=== PATIENT | female | born 1965 | race Caucasian/White ===

== ENCOUNTER 2019-08-02 17:36 | Emergency (ER) | payer OTHER, SELFPAY ==
[2019-08-02 17:45] VITALS: BP 142/70; PULSE 86; RESP 24; TEMP 36.5; O2SAT 100; BMI 25.0
[2019-08-02] MEDS: ONDANSETRON 4 MG/2 ML INJ IV ×2 (17:55→19:14)
[2019-08-02] MEDS: SODIUM CHLORIDE 0.9% 1,000 ML 1000 ML IV ×2 (17:56→19:14)
[2019-08-02 18:06] LABS: Add Manual Diff / Slide Review NO; Basophils Absolute Auto 100 /uL (0-100); Eosinophils Absolute Auto 100 /uL (0-450); Eosinophils Percent Auto 1.4 % (2-4); Hematocrit 44.9 % (36-46); Hemoglobin 15.5 g/dL (12.0-16.0); Lymphocytes Absolute Auto 1900 /uL (1100-4500); Lymphocytes Percent Auto 31.3 % (25-40); Mean Corpuscular HGB Conc 34.6 % (30-36); Mean Corpuscular Volume 89.6 fL (80-100); Monocytes Absolute Auto 500 /uL (0-900); Monocytes Percent Auto 7.8 % (3-14); Neutrophils Absolute Auto 3500 /uL (1500-7000); Neutrophils Percent Auto 58.5 % (50-75); Platelet Count 249 X10^3/uL (150-400); White Blood Cell Count 5.9 X10^3/uL (4.5-11.0)
[2019-08-02 18:15] LABS: Alanine Aminotransferase 22 IU/L (<35); Albumin 5.2 g/dL (3.5-5.0); Albumin Globulin Ratio 1.7 (1.0-2.8); Alkaline Phosphatase 44 U/L (38-126); Aspartate Aminotransferase 28 IU/L (14-36); Blood Urea Nitrogen 8 mg/dL (7-17); Carbon Dioxide 25 mmol/L (22-32); Chloride 104 mmol/L (98-107); Estimated Glomerular Filt Rate > 60.0 mL/min (>60); Globulin 3.1 g/dL (1.7-4.1); Glucose 145 mg/dL (70-100); HEMOLYSIS < 15 (0-50); Potassium 3.5 mmol/L (3.4-5.1); Sodium 142 mmol/L (137-145); Total Protein 8.3 g/dL (6.3-8.2)
[2019-08-02 18:16] LABS: Amylase 90 U/L (30-110); Lipase 152 U/L (23-300)
[2019-08-02 18:22] LABS: Influenza A and B by PCR Rapid Negative (Negative)
--- NOTE | 2019-08-02 18:24 | DI.RAD.S_ITS ---
PROCEDURE: XR ACUTE ABDOMEN SERIES INDICATIONS: abd pain,vomiting TECHNIQUE: One view chest and two views of the abdomen were acquired. COMPARISON: None. FINDINGS: Surgical changes and devices: None. Chest: Lungs are clear. Heart size is normal. No pleural effusions. No pneumoperitoneum. Abdomen: Bowel gas pattern is normal. Hvwb-gi-uwdzgitm stool. No suspicious calcifications. Visualized solid organ contours appear normal. Bones: No suspicious bony lesions. IMPRESSION: Ubqy-ia-udqsadtj stool. No obstruction. Dictated by: Carmen Spears M.D. on 08/02/2019 at 18:53 Approved by: Carmen Spears M.D. on 08/02/2019 at 18:54
[2019-08-02 18:52] VITALS: BP 143/76; PULSE 55; O2SAT 96
[2019-08-02] MEDS: KETOROLAC 60 MG/2 ML VIAL 30 MG IV (19:13)
--- NOTE | 2019-08-02 19:59 | ED.NAVMDI ---
HPI - Nausea/Vomiting/Diarrhea <ALEX Ozuna - Last Filed: 08/02/19 20:13> General Chief complaint: Nausea/Vomiting/Diarrhea Stated complaint: not feeling well 3x days Time Seen by Provider: 08/02/19 17:43 Source: patient Mode of arrival: Ambulatory Limitations: no limitations History of Present Illness HPI Narrative: The patient is a 53-year-old female former smoker with history of depression who presents with a chief complaint of not feeling well for the past 3 days. She states that she has general aches and pains a few days ago, progressive vomiting last night. She states she vomited several times last night has had trouble keeping fluids down today. She denies any fevers, abdominal pain, chest pain shortness of breath cough congestion etc. She has not taken anything at home to feel better. She denies any sore throat or ear pain. She feels overall like she has caught a virus. She is curious to know whether are not she has the flu. Related Data Home Medications Medication Instructions Recorded Confirmed bupropion HCl [Wellbutrin SR] 150 mg PO QDAY #0 10/04/11 escitalopram oxalate [Lexapro] 10 mg PO QDAY #0 10/04/11 POLYETHYLENE GLYCOL 3350 1 cap PO Q DAY #0 10/08/11 diazepam 5 mg PO #0 10/08/11 Previous Rx's Medication Instructions Recorded ondansetron 4 mg PO Q6H PRN #20 tab 08/02/19 Allergies Allergy/AdvReac Type Severity Reaction Status Date / Time Sulfa (Sulfonamide Allergy Intermediate HIVES Verified 08/02/19 17:52 Antibiotics) Review of Systems <ALEX Ozuna - Last Filed: 08/02/19 20:13> Review of Systems Narrative: GENERAL: See HPI HEENT: Denies sinus pain, ear pain, sore throat, difficulty swallowing, dizziness. RESPIRATORY: Denies dyspnea, cough, wheezing, hemoptysis, sputum. CARDIOVASCULAR: Denies chest pain, palpitations, orthopnea, edema, GASTROINTESTINAL: See HPI : Denies dysuria, frequency, incontinence, hematuria, urinary retention. MUSCULOSKELETAL: denies weakness, joint pain, or bony pain SKIN: Denies rash, skin lesions, or other NEUROLOGIC: Denies weakness, headache, numbness, change in speech, confusion, seizures, incoordination. PSYCHIATRIC: No concerning psychosocial issues. 12 point review of systems is negative except for those stated above Patient History <Soraya Rudd ALEX - Last Filed: 08/02/19 20:13> Social History Smoking Status: Former smoker alcohol intake frequency: 0-2 drinks per day Substance Use Type: does not use Exam <Soraya Rudd ALEX - Last Filed: 08/02/19 20:13> Narrative Exam Narrative: GENERAL: This is a well-nourished, well-developed patient, in no acute distress HEAD: Atraumatic. Normocephalic. No temporal or scalp tenderness. EYES: Pupils equal round and reactive. Extraocular motions intact. No scleral icterus. No injection or drainage. ENT: Nose without bleeding, purulent drainage or septal hematoma. Throat without erythema, tonsillar hypertrophy or exudate. Uvula midline. Airway patent. NECK: Trachea midline. No JVD or lymphadenopathy. Supple, nontender, no meningeal signs. CARDIOVASCULAR: Regular rate and rhythm without murmurs, gallops, or rubs. RESPIRATORY: Clear to auscultation. Breath sounds equal bilaterally. No wheezes, rales, or rhonchi. No cough. No increased respiratory effort. No accessory muscle use. GASTROINTESTINAL: Abdomen soft, non-tender, nondistended. No hepato-splenomegaly, or palpable masses. No guarding. Nontender to palpation all quadrants, soft to palpation all quadrants. Active bowel sounds all 4 quadrants. EXTREMITIES: No clubbing, cyanosis, or edema. No joint tenderness, effusion, or edema noted. BACK: Nontender without deformity or crepitance. No flank tenderness. NEURO: AOx3. SKIN: No rash or erythema. Initial Vital Signs Initial Vital Signs: Vital Signs Temperature 97.7 F 08/02/19 17:45 Pulse Rate 86 08/02/19 17:45 Respiratory Rate 24 08/02/19 17:45 Blood Pressure 142/70 H 08/02/19 17:45 Pulse Oximetry 100 08/02/19 17:45 <Mikhail Rader DO - Last Filed: 08/02/19 21:09> Initial Vital Signs Initial Vital Signs: Vital Signs Temperature 97.7 F 08/02/19 17:45 Pulse Rate 86 08/02/19 17:45 Respiratory Rate 24 08/02/19 17:45 Blood Pressure 142/70 H 08/02/19 17:45 Pulse Oximetry 100 08/02/19 17:45 Course <CHEPE Ozuna- - Last Filed: 08/02/19 20:13> Orders Ordered: ED Orders 08/02/19 17:55 Amylase Stat Complete Blood Count AUTO DIFF Stat Comprehensive Metabolic Panel Stat Influenza A and B by PCR Rapid Stat Lipase Stat 08/02/19 18:24 XR acute abdomen series Stat Discontinued Medications Sodium Chloride (Normal Saline 0.9%) 1,000 mls @ 1,000 mls/hr IV BOLUS ONE Stop: 08/02/19 18:48 Last Infusion: 08/02/19 18:52 Dose: 0 mls/hr Documented by: JOSE ENRIQUE Admin: 08/02/19 17:56 Dose: 1,000 mls/hr Documented by: SURENDRA Sodium Chloride (Normal Saline 0.9%) 1,000 mls @ 1,000 mls/hr IV BOLUS ONE Stop: 08/02/19 19:45 Last Infusion: 08/02/19 20:11 Dose: 0 mls/hr Documented by: JOSE ENRIQUE Admin: 08/02/19 19:14 Dose: 1,000 mls/hr Documented by: JOSE ENRIQUE Ketorolac Tromethamine (Toradol) 30 mg IV NOW ONE Stop: 08/02/19 19:03 Last Admin: 08/02/19 19:13 Dose: 30 mg Documented by: JOSE ENRIQUE Ketorolac Tromethamine (Toradol) 30 mg IV NOW ONE Stop: 08/02/19 19:02 Last Admin: 08/02/19 19:36 Dose: Not Given Documented by: JOSE ENRIQUE Ondansetron HCl (Zofran) 4 mg IV NOW ONE Stop: 08/02/19 17:50 Last Admin: 08/02/19 17:55 Dose: 4 mg Documented by: SURENDRA Ondansetron HCl (Zofran) 4 mg IV NOW ONE Stop: 08/02/19 19:03 Last Admin: 08/02/19 19:14 Dose: 4 mg Documented by: JOSE ENRIQUE Ondansetron HCl (Zofran) 4 mg IV NOW ONE Stop: 08/02/19 19:02 Last Admin: 08/02/19 19:37 Dose: Not Given Documented by: JOSE ENRIQUE Ondansetron HCl (Zofran Odt Prepack) 1 bottle MISC SEEINSTR ONE Stop: 08/02/19 20:00 Last Admin: 08/02/19 20:06 Dose: 1 bottle Documented by: SURENDRA Vital Signs Vital signs: Vital Signs - 8 hr 08/02/19 17:45 08/02/19 18:52 08/02/19 20:11 Temperature 97.7 F Pulse Rate 86 55 L 72 Respiratory Rate 24 16 Blood Pressure 142/70 H 116/70 Blood Pressure [Left Arm] 143/76 H Pulse Oximetry 100 96 97 <Mikhail Rader DO - Last Filed: 08/02/19 21:09> Orders Ordered: ED Orders 08/02/19 17:55 Amylase Stat Complete Blood Count AUTO DIFF Stat Comprehensive Metabolic Panel Stat Influenza A and B by PCR Rapid Stat Lipase Stat 08/02/19 18:24 XR acute abdomen series Stat Discontinued Medications Sodium Chloride (Normal Saline 0.9%) 1,000 mls @ 1,000 mls/hr IV BOLUS ONE Stop: 08/02/19 18:48 Last Infusion: 08/02/19 18:52 Dose: 0 mls/hr Documented by: JOSE ENRIQUE Admin: 08/02/19 17:56 Dose: 1,000 mls/hr Documented by: SURENDRA Sodium Chloride (Normal Saline 0.9%) 1,000 mls @ 1,000 mls/hr IV BOLUS ONE Stop: 08/02/19 19:45 Last Infusion: 08/02/19 20:11 Dose: 0 mls/hr Documented by: JOSE ENRIQUE Admin: 08/02/19 19:14 Dose: 1,000 mls/hr Documented by: JOSE ENRIQUE Ketorolac Tromethamine (Toradol) 30 mg IV NOW ONE Stop: 08/02/19 19:03 Last Admin: 08/02/19 19:13 Dose: 30 mg Documented by: JOSE ENRIQUE Ketorolac Tromethamine (Toradol) 30 mg IV NOW ONE Stop: 08/02/19 19:02 Last Admin: 08/02/19 19:36 Dose: Not Given Documented by: JOSE ENRIQUE Ondansetron HCl (Zofran) 4 mg IV NOW ONE Stop: 08/02/19 17:50 Last Admin: 08/02/19 17:55 Dose: 4 mg Documented by: SURENDRA Ondansetron HCl (Zofran) 4 mg IV NOW ONE Stop: 08/02/19 19:03 Last Admin: 08/02/19 19:14 Dose: 4 mg Documented by: JOSE ENRIQUE Ondansetron HCl (Zofran) 4 mg IV NOW ONE Stop: 08/02/19 19:02 Last Admin: 08/02/19 19:37 Dose: Not Given Documented by: JOSE ENRIQUE Ondansetron HCl (Zofran Odt Prepack) 1 bottle MISC SEEINSTR ONE Stop: 08/02/19 20:00 Last Admin: 08/02/19 20:06 Dose: 1 bottle Documented by: SURENDRA Vital Signs Vital signs: Vital Signs - 8 hr 08/02/19 17:45 08/02/19 18:52 08/02/19 20:11 Temperature 97.7 F Pulse Rate 86 55 L 72 Respiratory Rate 24 16 Blood Pressure 142/70 H 116/70 Blood Pressure [Left Arm] 143/76 H Pulse Oximetry 100 96 97 MDM - Nausea/Vomiting/Diarrhea <CHEPE Ozuna- - Last Filed: 08/02/19 20:13> Lab Data Result diagrams: 08/02/19 17:55 08/02/19 17:55 Labs: Lab Results 08/02/19 08/02/19 08/02/19 Range/Units 17:55 17:55 17:55 WBC 5.9 (4.5-11.0) X10^3/uL RBC 5.00 (4.0-5.2) X10^6/uL Hgb 15.5 (12.0-16.0) g/dL Hct 44.9 (36-46) % MCV 89.6 (80-100) fL MCH 31.0 (26-34) PG MCHC 34.6 (30-36) % RDW 13.0 (11.6-14.8) % Plt Count 249 (150-400) X10^3/uL Neut % (Auto) 58.5 (50-75) % Lymph % (Auto) 31.3 (25-40) % [place] % (Auto) 7.8 (3-14) % Eos % (Auto) 1.4 L (2-4) % Baso % (Auto) 1.0 (0-2) % Neut # (Auto) 3500 (6345-2651) /uL Lymph # (Auto) 1900 (6470-8947) /uL [place] # (Auto) 500 (0-900) /uL Eos # (Auto) 100 (0-450) /uL Baso # (Auto) 100 (0-100) /uL Sodium (137-145) mmol/L Potassium (3.4-5.1) mmol/L Chloride (98-107) mmol/L Carbon Dioxide (22-32) mmol/L BUN (7-17) mg/dL Creatinine (0.52-1.04) mg/dL Estimated GFR (>60) mL/min BUN/Creatinine Ratio (6-22) Glucose (70-100) mg/dL Calcium (8.4-10.2) mg/dL Total Bilirubin (0.2-1.3) mg/dL AST (14-36) IU/L ALT (<35) IU/L Alkaline Phosphatase (38-126) U/L Total Protein (6.3-8.2) g/dL Albumin (3.5-5.0) g/dL Globulin (1.7-4.1) g/dL Albumin/Globulin Ratio (1.0-2.8) Amylase 90 (30-110) U/L Lipase 152 (23-300) U/L Influenza A & B (PCR) Negative (Negative) 08/02/19 Range/Units 17:55 WBC (4.5-11.0) X10^3/uL RBC (4.0-5.2) X10^6/uL Hgb (12.0-16.0) g/dL Hct (36-46) % MCV (80-100) fL MCH (26-34) PG MCHC (30-36) % RDW (11.6-14.8) % Plt Count (150-400) X10^3/uL Neut % (Auto) (50-75) % Lymph % (Auto) (25-40) % [place] % (Auto) (3-14) % Eos % (Auto) (2-4) % Baso % (Auto) (0-2) % Neut # (Auto) (1159-4952) /uL Lymph # (Auto) (3441-0732) /uL [place] # (Auto) (0-900) /uL Eos # (Auto) (0-450) /uL Baso # (Auto) (0-100) /uL Sodium 142 (137-145) mmol/L Potassium 3.5 (3.4-5.1) mmol/L Chloride 104 (98-107) mmol/L Carbon Dioxide 25 (22-32) mmol/L BUN 8 (7-17) mg/dL Creatinine 0.80 (0.52-1.04) mg/dL Estimated GFR > 60.0 (>60) mL/min BUN/Creatinine Ratio 10.0 (6-22) Glucose 145 H (70-100) mg/dL Calcium 10.0 (8.4-10.2) mg/dL Total Bilirubin 1.0 (0.2-1.3) mg/dL AST 28 (14-36) IU/L ALT 22 (<35) IU/L Alkaline Phosphatase 44 (38-126) U/L Total Protein 8.3 H (6.3-8.2) g/dL Albumin 5.2 H (3.5-5.0) g/dL Globulin 3.1 (1.7-4.1) g/dL Albumin/Globulin Ratio 1.7 (1.0-2.8) Amylase (30-110) U/L Lipase (23-300) U/L Influenza A & B (PCR) (Negative) Urine Dip Bedside Urine Glucose Negative Bedside Urine Bilirubin - Negative Bedside Urine Ketone - Negative Urine Specific [place] 1.005 Bedside Urine Occult Blood - Negative Bedside Urine pH 8.5 Bedside Urine Protein - Negative Bedside Urine Urobilinogen - Negative Bedside Urine Nitrite - Negative Bedside Urine Leukocytes - Negative Esterase Imaging Data Abdominal x-ray: Radiologist's impression: Whit Dee E 53 F [address] [address] XRay Report Signed Patient: Whit Dee EMR#: [id number] : 1965Acct:[id number] Age/Sex: 53 / FDate of Service: 08/02/19 Loc: ED Accession Number: [id number] Procedure: XR acute abdomen series Ordering Provider: Soraya Rudd- PROCEDURE: XR ACUTE ABDOMEN SERIES INDICATIONS: abd pain,vomiting TECHNIQUE: One view chest and two views of the abdomen were acquired. COMPARISON: None. FINDINGS: Surgical changes and devices: None. Chest: Lungs are clear. Heart size is normal. No pleural effusions. No pneumoperitoneum. Abdomen: Bowel gas pattern is normal. Jfzt-kq-wmkfjfms stool. No suspicious calcifications. Visualized solid organ contours appear normal. Bones: No suspicious bony lesions. IMPRESSION: Omhy-xb-uxywdcvd stool. No obstruction. Dictated by: Carmen Spears M.D. on 08/02/2019 at 18:53 Approved by: Carmen Spears M.D. on 08/02/2019 at 18:54 [facility] Narrative Medical decision making narrative: The patient is a 53-year-old female who presents with muscle aches and chills, sweats and nausea vomiting for the past several days. She is given 2 L of IV fluid, Zofran and felt much improved. She is able to tolerate a p.o. trial. She does not have any abdominal pain to palpation, no complaints of abdominal pain. She has any chest pain, and has clean urine. Her lab work is grossly normal. I discussed at length the importance of follow-up with primary care provider, come back to the emergency department for any acute concerns such as chest pain, concern of heart attack or stroke. Patient has no questions or concerns upon discharge and states understanding of return precautions as well as follow-up care. She was given Zofran and a prescription of Zofran. Encouraged easy diet. <Mikhail Rader, DO - Last Filed: 08/02/19 21:09> Lab Data Labs: Lab Results 08/02/19 08/02/19 08/02/19 Range/Units 17:55 17:55 17:55 WBC 5.9 (4.5-11.0) X10^3/uL RBC 5.00 (4.0-5.2) X10^6/uL Hgb 15.5 (12.0-16.0) g/dL Hct 44.9 (36-46) % MCV 89.6 (80-100) fL MCH 31.0 (26-34) PG MCHC 34.6 (30-36) % RDW 13.0 (11.6-14.8) % Plt Count 249 (150-400) X10^3/uL Neut % (Auto) 58.5 (50-75) % Lymph % (Auto) 31.3 (25-40) % [place] % (Auto) 7.8 (3-14) % Eos % (Auto) 1.4 L (2-4) % Baso % (Auto) 1.0 (0-2) % Neut # (Auto) 3500 (9882-7748) /uL Lymph # (Auto) 1900 (3023-3640) /uL [place] # (Auto) 500 (0-900) /uL Eos # (Auto) 100 (0-450) /uL Baso # (Auto) 100 (0-100) /uL Sodium (137-145) mmol/L Potassium (3.4-5.1) mmol/L Chloride (98-107) mmol/L Carbon Dioxide (22-32) mmol/L BUN (7-17) mg/dL Creatinine (0.52-1.04) mg/dL Estimated GFR (>60) mL/min BUN/Creatinine Ratio (6-22) Glucose (70-100) mg/dL Calcium (8.4-10.2) mg/dL Total Bilirubin (0.2-1.3) mg/dL AST (14-36) IU/L ALT (<35) IU/L Alkaline Phosphatase (38-126) U/L Total Protein (6.3-8.2) g/dL Albumin (3.5-5.0) g/dL Globulin (1.7-4.1) g/dL Albumin/Globulin Ratio (1.0-2.8) Amylase 90 (30-110) U/L Lipase 152 (23-300) U/L Influenza A & B (PCR) Negative (Negative) 08/02/19 Range/Units 17:55 WBC (4.5-11.0) X10^3/uL RBC (4.0-5.2) X10^6/uL Hgb (12.0-16.0) g/dL Hct (36-46) % MCV (80-100) fL MCH (26-34) PG MCHC (30-36) % RDW (11.6-14.8) % Plt Count (150-400) X10^3/uL Neut % (Auto) (50-75) % Lymph % (Auto) (25-40) % [place] % (Auto) (3-14) % Eos % (Auto) (2-4) % Baso % (Auto) (0-2) % Neut # (Auto) (9958-2571) /uL Lymph # (Auto) (0857-9773) /uL [place] # (Auto) (0-900) /uL Eos # (Auto) (0-450) /uL Baso # (Auto) (0-100) /uL Sodium 142 (137-145) mmol/L Potassium 3.5 (3.4-5.1) mmol/L Chloride 104 (98-107) mmol/L Carbon Dioxide 25 (22-32) mmol/L BUN 8 (7-17) mg/dL Creatinine 0.80 (0.52-1.04) mg/dL Estimated GFR > 60.0 (>60) mL/min BUN/Creatinine Ratio 10.0 (6-22) Glucose 145 H (70-100) mg/dL Calcium 10.0 (8.4-10.2) mg/dL Total Bilirubin 1.0 (0.2-1.3) mg/dL AST 28 (14-36) IU/L ALT 22 (<35) IU/L Alkaline Phosphatase 44 (38-126) U/L Total Protein 8.3 H (6.3-8.2) g/dL Albumin 5.2 H (3.5-5.0) g/dL Globulin 3.1 (1.7-4.1) g/dL Albumin/Globulin Ratio 1.7 (1.0-2.8) Amylase (30-110) U/L Lipase (23-300) U/L Influenza A & B (PCR) (Negative) Urine Dip Bedside Urine Glucose Negative Bedside Urine Bilirubin - Negative Bedside Urine Ketone - Negative Urine Specific [place] 1.005 Bedside Urine Occult Blood - Negative Bedside Urine pH 8.5 Bedside Urine Protein - Negative Bedside Urine Urobilinogen - Negative Bedside Urine Nitrite - Negative Bedside Urine Leukocytes - Negative Esterase Discharge Plan Departure Patient Disposition: Home Clinical Impression: Nausea & vomiting Qualifiers: Vomiting type: unspecified Vomiting Intractability: non-intractable Qualified Code(s): R11.2 - Nausea with vomiting, unspecified Discharge Date/Time: 08/02/19 20:12 Instructions: DI for Nausea -- Adult, DI for Vomiting -- Adult Activity Restrictions/Additional Instructions: Today your lab work and imaging is very reassuring. You felt well after fluids and Zofran for nausea. I have given you a take-home pack of nausea medication and given you a prescription to fill tomorrow. Please come back to the emergency department for any acute concerns such as fevers abdominal pain, inability keep Down fluids. I suggest a mild diet for the next few days. Please follow up with primary care provider. Prescriptions: New ondansetron 4 mg tablet,disintegrating 4 mg PO Q6H PRN (Reason: nausea and vomiting) Qty: 20 RF: 0 No Action bupropion HCl [Wellbutrin SR] 150 MG tablet extended release 12 hr 150 mg PO QDAY Qty: 0 RF: 0 escitalopram oxalate [Lexapro] 10 MG tablet 10 mg PO QDAY Qty: 0 RF: 0 diazepam 5 MG tablet 5 mg PO Qty: 0 RF: 0 POLYETHYLENE GLYCOL 3350 1 cap PO Q DAY Qty: 0 RF: 0 Referrals: Camila Alexander MD [Primary Care Provider] - Stand Alone Forms: Work Release Note <Mikhail Rader, DO - Last Filed: 08/02/19 21:09> Sign Out Provider Sign Out Attestation: Dr Rader Co-Sign Statement: I was available for consultation during this patient's emergency department visit. This chart is signed by myself for administrative purposes only. I did not have direct contact with this patient during this visit. They were seen independently by the APC.
[2019-08-02] MEDS: ONDANSETRON 4 MG ODT PREPACK 1 BOTTLE MISC (20:06)
[2019-08-02 20:11] VITALS: BP 116/70; PULSE 72; RESP 16; O2SAT 97
== END 2019-08-02 20:12 | disposition home or self-care (01) ==
PROVIDERS: Emergency Provider Nurse Practitioner Family; PCP Family Medicine
DX: R11.2 Nausea with vomiting, unspecified (principal); R10.9 Unspecified abdominal pain
CPT/HCPCS: 36415; 74022; 80053; 81003; 82150; 83690; 85025; 87502; 96361; 96374; 96375; 96376; 99283; 99284; J1885; J2405

== ENCOUNTER → 2019-09-24 16:52 | Outpatient (CLI) | payer OTHER, SELFPAY ==
--- NOTE | 2019-09-24 16:53 | DI.MG.S_ITS ---
BILATERAL DIGITAL SCREENING MAMMOGRAM 3D/2D WITH CAD: 09/24/2019 CLINICAL: Routine screening. Family history of breast cancer. Comparison is made to exams dated: 07/24/2016 mammogram, 07/28/2013 mammogram, and 05/27/2009 mammogram - [facility]. The tissue of both breasts is heterogeneously dense. This may lower the sensitivity of mammography. Current study was also evaluated with a Computer Aided Detection (CAD) system. No significant masses, calcifications, or other findings are seen in either breast. There has been no significant interval change. IMPRESSION: NEGATIVE There is no mammographic evidence of malignancy. A 1 year screening mammogram is recommended. This exam was interpreted at Station ID: [id number]. NOTE: For mammograms, a report in lay terms will be sent to the patient. Approximately 15% of breast malignancies will not be visualized mammographically. In the management of a palpable breast mass, a negative mammogram must not discourage biopsy of a clinically suspicious lesion. Electronically Signed By: Sachin conn/ridge:09/25/2019 15:03:48 letter sent: Normal Exam ACR BI-RADS Category 1: Negative [id number]
== END ==
PROVIDERS: PCP Family Medicine; Visit Provider Family Medicine
DX: Z12.31 Encounter for screening mammogram for malignant neoplasm of breast (principal); Z80.3 Family history of malignant neoplasm of breast
CPT/HCPCS: 77063; 77067

== ENCOUNTER 2022-03-01 15:13 | Emergency (ER) | payer OTHER, SELFPAY ==
[2022-03-01] VITALS (7 sets, daily range): BP systolic 126–135; BP diastolic 71–73; PULSE 59–67; RESP 18; TEMP 36.6; O2SAT 97–100
[2022-03-01 16:04] LABS: Add Manual Diff / Slide Review NO; Basophils Absolute Auto 0 /uL (0-100); Basophils Percent Auto 0.7 % (0-2); Eosinophils Absolute Auto 100 /uL (0-450); Eosinophils Percent Auto 1.5 % (2-4); Hematocrit 39.9 % (36-46); Hemoglobin 13.8 g/dL (12.0-16.0); Lymphocytes Absolute Auto 1400 /uL (1100-4500); Lymphocytes Percent Auto 22.9 % (25-40); Mean Corpuscular HGB Conc 34.6 % (30-36); Mean Corpuscular Hemoglobin 30.5 PG (26-34); Mean Corpuscular Volume 88.1 fL (80-100); Monocytes Absolute Auto 500 /uL (0-900); Neutrophils Absolute Auto 4100 /uL (1500-7000); Neutrophils Percent Auto 66.9 % (50-75); Platelet Count 217 X10^3/uL (150-400); Red Blood Cell Count 4.53 X10^6/uL (4.0-5.2); Red Cell Distribution Width 13.7 % (11.6-14.8); White Blood Cell Count 6.2 X10^3/uL (4.5-11.0)
--- NOTE | 2022-03-01 16:13 | ED.GENADULT ---
HPI - General Adult General Chief complaint: Abdominal Pain Stated complaint: Stabbing Pain on Rt Side Abd Time Seen by Provider: 03/01/22 15:42 Source: patient Mode of arrival: Ambulatory Limitations: no limitations History of Present Illness HPI narrative: Patient is a 56-year-old female who is here for evaluation of upper abdominal discomfort. She states that it started about mid morning today. It actually got worse but is now somewhat better. It still feels somewhat sore to her. Not worse with eating. Not worse with urinating. She has not had a bowel movement since the onset of the symptoms. No nausea vomiting. Has had a hysterectomy and left-sided ovary removal but no other abdominal surgeries. Has never had any issues with her gallbladder in the past. No rashes. She did try some Tums earlier today but that did not seem to improve any of her symptoms. Related Data Home Medications Medication Instructions Recorded Confirmed bupropion HCl 150 mg tablet,12 hr 150 mg PO QDAY ##0 10/04/11 sustained-release (Wellbutrin SR) escitalopram oxalate 10 mg tablet 10 mg PO QDAY ##0 10/04/11 03/01/22 (Lexapro) POLYETHYLENE GLYCOL 3350 1 cap PO Q DAY ##0 10/08/11 03/01/22 diazepam 5 mg tablet 5 mg PO ##0 10/08/11 levothyroxine 100 mcg tablet tab 03/01/22 (Synthroid) Previous Rx's Medication Instructions Recorded ondansetron 4 mg disintegrating 4 mg PO Q6H PRN nausea and 08/02/19 tablet vomiting #20 tabs Allergies Allergy/AdvReac Type Severity Reaction Status Date / Time Sulfa (Sulfonamide Allergy Intermediate HIVES Verified 03/01/22 15:23 Antibiotics) Review of Systems Constitutional Constitutional: Denies fever(s) Cardiovascular Cardiovascular: Reports system reviewed and no additional complaints, except as documented Respiratory Respiratory: Reports system reviewed and no additional complaints, except as documented Gastrointestinal Gastrointestinal: Reports as per HPI and Reports system reviewed and no additional complaints, except as documented Genitourinary Genitourinary: Reports system reviewed and no additional complaints, except as documented and Reports as per HPI Musculoskeletal Musculoskeletal: Reports system reviewed and no additional complaints, except as documented and Reports as per HPI Integumentary/Breasts Skin/Breast: Reports system reviewed and no additional complaints, except as documented and Reports as per HPI Hematologic/Lymphatic On Anticoagulants: No Patient History Medical History Hypothyroid Social History Smoking Status: Former smoker Smoking Status: Former smoker alcohol intake frequency: 0-2 drinks per day Substance Use Type: does not use Exam Initial Vital Signs Initial Vital Signs: Vital Signs Temperature 97.9 F 03/01/22 15:18 Pulse Rate 67 03/01/22 15:18 Respiratory Rate 18 03/01/22 15:18 Blood Pressure 133/71 03/01/22 15:18 Pulse Oximetry 100 03/01/22 15:18 Oxygen Delivery Method 03/01/22 15:18 Const General: cooperative, comfortable and well developed HENMT Head: normal to inspection and normocephalic Resp Effort & Inspection: normal respiratory effort Auscultation: clear to auscultation bilaterally Cardio Rate: regular rate Rhythm: regular rhythm GI Inspection: normal to inspection Palpation: soft, No guarding and tender (Right upper quadrant) Skin General: no rashes or lesions noted Neuro General: patient alert, patient awake and moves all extremities Extrem General: normal to inspection and capillary refill normal Psych Appearance: grossly normal and well kempt Course Orders Ordered: ED Orders 03/01/22 15:53 Complete Blood Count AUTO DIFF Stat Comprehensive Metabolic Panel Stat Lipase Stat 03/01/22 16:15 US abdomen limited Stat Vital Signs Vital signs: Vital Signs - 8 hr 03/01/22 15:18 03/01/22 15:56 03/01/22 15:56 Temperature 97.9 F Pulse Rate 67 62 Respiratory Rate 18 Blood Pressure 133/71 135/72 Pulse Oximetry 100 99 Oxygen Delivery Method Room Air 03/01/22 16:00 03/01/22 16:34 03/01/22 16:34 Temperature Pulse Rate 59 L 59 L Respiratory Rate Blood Pressure 126/73 Pulse Oximetry 97 100 Oxygen Delivery Method 03/01/22 17:00 03/01/22 17:30 03/01/22 18:00 Temperature Pulse Rate 60 60 59 L Respiratory Rate Blood Pressure Pulse Oximetry 99 100 99 Oxygen Delivery Method Medical Decision Making Lab Data Lab results reviewed: Yes I reviewed the patient's lab results. Result diagrams: 03/01/22 15:53 03/01/22 15:53 Labs: Lab Results 03/01/22 03/01/22 Range/Units 15:53 15:53 WBC 6.2 (4.5-11.0) X10^3/uL RBC 4.53 (4.0-5.2) X10^6/uL Hgb 13.8 (12.0-16.0) g/dL Hct 39.9 (36-46) % MCV 88.1 (80-100) fL MCH 30.5 (26-34) PG MCHC 34.6 (30-36) % RDW 13.7 (11.6-14.8) % Plt Count 217 (150-400) X10^3/uL Neut % (Auto) 66.9 (50-75) % Lymph % (Auto) 22.9 L (25-40) % Mcdowell % (Auto) 8.0 (3-14) % Eos % (Auto) 1.5 L (2-4) % Baso % (Auto) 0.7 (0-2) % Neut # (Auto) 4100 (7020-1468) /uL Lymph # (Auto) 1400 (6040-8851) /uL Mcdowell # (Auto) 500 (0-900) /uL Eos # (Auto) 100 (0-450) /uL Baso # (Auto) 0 (0-100) /uL Sodium 141 (137-145) mmol/L Potassium 3.7 (3.4-5.1) mmol/L Chloride 102 (98-107) mmol/L Carbon Dioxide 32 (22-32) mmol/L BUN 12 (7-17) mg/dL Creatinine 0.90 (0.52-1.04) mg/dL Estimated GFR > 60 (>60) mL/min BUN/Creatinine Ratio 13.3 (6-22) Glucose 125 H (70-100) mg/dL Calcium 9.5 (8.4-10.2) mg/dL Total Bilirubin 1.0 (0.2-1.3) mg/dL AST 34 (14-36) IU/L ALT 25 (<35) IU/L Alkaline Phosphatase 57 (38-126) U/L Total Protein 7.5 (6.3-8.2) g/dL Albumin 4.5 (3.5-5.0) g/dL Globulin 3.0 (1.7-4.1) g/dL Albumin/Globulin Ratio 1.5 (1.0-2.8) Lipase 115 (23-300) U/L Urine Dip Bedside Urine Glucose Negative Bedside Urine Bilirubin - Negative Bedside Urine Ketone - Negative Urine Specific Coyle 1.010 Bedside Urine Occult Blood - Negative Bedside Urine pH 7.5 Bedside Urine Protein - Negative Bedside Urine Urobilinogen - Negative Bedside Urine Nitrite - Negative Bedside Urine Leukocytes - Negative Esterase Point of care testing: Urine Dip Bedside Urine Glucose Negative Bedside Urine Bilirubin - Negative Bedside Urine Ketone - Negative Urine Specific Coyle 1.010 Bedside Urine Occult Blood - Negative Bedside Urine pH 7.5 Bedside Urine Protein - Negative Bedside Urine Urobilinogen - Negative Bedside Urine Nitrite - Negative Bedside Urine Leukocytes - Negative Esterase Imaging Data US - abdomen: Radiologist's Impression: [address] [address] Ultrasound Report Signed Patient: Whit Dee MR#: [id number] : 1965 Acct:[id number] Age/Sex: 56 / F Date of Service: 03/01/22 Loc: ED Accession Number: [id number] ?? Procedure: US abdomen limited Ordering Provider: Mikhail Rader D.O. PROCEDURE: US ABDOMEN LIMITED ? INDICATIONS:? RUQ pain eval for GB pathology ? TECHNIQUE:? Real-time focused scanning was performed of the abdomen, with image documentation.? ? COMPARISON:? None. ? FINDINGS:? The liver demonstrates normal size and normal overall.? There is a 2.1 cm cystic focus without abnormal vascularity seen involving left liver.? Adjacent to this, there is a increased echogenicity that measures up 3.5 cm, which may be to a hemangioma.? No shadowing or abnormal vascularity can be seen associated with this lesion. ? No findings of gallstones or sludge are seen.? The gallbladder wall is not thickened, measuring 3 mm or less.? No specific pericholecystic fluid is seen.? The sonographic Warner sign is negative. ? There is no biliary dilatation, the common bile duct measures 6 mm.? ? No significant pancreatic abnormality is seen on these images.? ? Additional, dedicated ultrasound scanning is performed at the area of right lower quadrant pain.? No focal ultrasound abnormalities are seen within this region.? Normal appearing bowel can be seen at this site. ? IMPRESSION:? The gallbladder demonstrates a normal sonographic appearance. No biliary dilatation is seen. ? Bowel seen within the area right lower quadrant pain as designated by the patient. ? A 2.1 cm simple cyst is seen within the liver. ? A hyperechoic nonshadowing area is seen within the liver that measures 3.5 cm, which is likely related to a hemangioma. ? ? Dictated by: Wilton Franco M.D. on 03/01/2022 at 16:25 ? ? Approved by: Wilton Franco M.D. on 03/01/2022 at 16:26? MDM Narrative Medical decision making narrative: Patient's right upper quadrant ultrasound is unremarkable. Labs are unremarkable. She is feeling somewhat better than its maximum intensity earlier today. Had a discussion regarding options to include a CT scan the abdomen to evaluate for further intra-abdominal surgical issues versus discharge home and returning if her symptoms worsen. After this discussion the patient opted to be discharged home will come back. No indication for antibiotics. Patient's was at bedside for this discussions. She expressed understanding and agreement. Discharge Plan Departure Patient Disposition: Home Clinical Impression: Abdominal pain Instructions: DI for Abdominal Pain-Adult Activity Restrictions/Additional Instructions: I do recommend that you contact your primary doctor for follow-up. We have decided to hold on any CT scans for now also if over the next several hours appear symptoms worsen or change or he develop any new symptoms please return to the emergency department for further evaluation. Prescriptions: No Action bupropion HCl [Wellbutrin SR] 150 MG tablet extended release 12 hr 150 mg PO QDAY Qty: 0 escitalopram oxalate [Lexapro] 10 MG tablet 10 mg PO QDAY Qty: 0 diazepam 5 MG tablet 5 mg PO Qty: 0 POLYETHYLENE GLYCOL 3350 1 cap PO Q DAY Qty: 0 ondansetron 4 mg tablet,disintegrating 4 mg PO Q6H PRN (Reason: nausea and vomiting) Qty: 20 0RF levothyroxine [Synthroid] 100 mcg tablet Label Comments: TAKE 1 TABLET BY MOUTH EVERY DAY Referrals: Camila Alexander MD [Primary Care Provider] -
--- NOTE | 2022-03-01 16:15 | DI.US.S_ITS ---
PROCEDURE: US ABDOMEN LIMITED INDICATIONS: RUQ pain eval for GB pathology TECHNIQUE: Real-time focused scanning was performed of the abdomen, with image documentation. COMPARISON: None. FINDINGS: The liver demonstrates normal size and normal overall. There is a 2.1 cm cystic focus without abnormal vascularity seen involving left liver. Adjacent to this, there is a increased echogenicity that measures up 3.5 cm, which may be to a hemangioma. No shadowing or abnormal vascularity can be seen associated with this lesion. No findings of gallstones or sludge are seen. The gallbladder wall is not thickened, measuring 3 mm or less. No specific pericholecystic fluid is seen. The sonographic Warner sign is negative. There is no biliary dilatation, the common bile duct measures 6 mm. No significant pancreatic abnormality is seen on these images. Additional, dedicated ultrasound scanning is performed at the area of right lower quadrant pain. No focal ultrasound abnormalities are seen within this region. Normal appearing bowel can be seen at this site. IMPRESSION: The gallbladder demonstrates a normal sonographic appearance. No biliary dilatation is seen. Bowel seen within the area right lower quadrant pain as designated by the patient. A 2.1 cm simple cyst is seen within the liver. A hyperechoic nonshadowing area is seen within the liver that measures 3.5 cm, which is likely related to a hemangioma. Dictated by: Wilton Franco M.D. on 03/01/2022 at 16:25 Approved by: Wilton Franco M.D. on 03/01/2022 at 16:26
[2022-03-01 16:52] LABS: Alanine Aminotransferase 25 IU/L (<35); Albumin 4.5 g/dL (3.5-5.0); Albumin Globulin Ratio 1.5 (1.0-2.8); Alkaline Phosphatase 57 U/L (38-126); Aspartate Aminotransferase 34 IU/L (14-36); BUN Creatinine Ratio 13.3 (6-22); Blood Urea Nitrogen 12 mg/dL (7-17); Calcium 9.5 mg/dL (8.4-10.2); Carbon Dioxide 32 mmol/L (22-32); Chloride 102 mmol/L (98-107); Estimated Glomerular Filt Rate > 60 mL/min (>60); Glucose 125 mg/dL (70-100); HEMOLYSIS < 15 (0-50); Lipase 115 U/L (23-300); Potassium 3.7 mmol/L (3.4-5.1); Sodium 141 mmol/L (137-145); Total Protein 7.5 g/dL (6.3-8.2)
== END 2022-03-01 18:50 | disposition home or self-care (01) ==
PROVIDERS: Emergency Provider Emergency Medicine; PCP Family Medicine
DX: R10.10 Upper abdominal pain, unspecified (principal)
CPT/HCPCS: 36415; 76705; 80053; 81003; 83690; 85025; 99284

== ENCOUNTER 2024-05-09 07:59 | Emergency (ER) | payer OTHER, SELFPAY ==
[2024-05-09 08:05] VITALS: BP 129/74; PULSE 88; O2SAT 98
[2024-05-09 08:09] VITALS: BP 129/74; PULSE 87; RESP 16; TEMP 36.6; O2SAT 99; BMI 25.7
--- NOTE | 2024-05-09 08:18 | DI.RAD.S_ITS ---
PROCEDURE: XR CHEST 1V INDICATIONS: chest pain TECHNIQUE: One view of the chest was acquired. COMPARISON: , , CHEST 2 VIEW, 04/28/2015, 15:12. FINDINGS: Surgical changes and devices: None. Lungs and pleura: Lungs are clear. No pleural effusions or pneumothorax. Mediastinum: Mediastinal contours appear normal. Heart size is normal. Bones and chest wall: No suspicious bony lesions. Overlying soft tissues appear unremarkable. IMPRESSION: No acute cardiopulmonary abnormality is seen. Approved by: Zaira Malik M.D.,Ph.D. on 05/09/2024 at 8:56
--- NOTE | 2024-05-09 08:18 | ED.URI ---
HPI - URI/Sore Throat General Chief Complaint: Upper Respiratory Symptoms Stated Complaint: poss allergic reaction Time Seen by Provider: 05/09/24 08:07 History of Present Illness HPI Narrative: Patient is a 58-year-old female past medical history of hypothyroidism, anxiety depression, comes into the ED from home for flu-like symptoms. States that she has been having nasal pressure chest pressure, cough ongoing and persistent past several days, states that she did travel recently, denies any actual headache visual disturbances chest pain fever chills nausea vomiting abdominal pain or any other GI/ symptoms time. She states that she just feels ?tired. Related Data Home Medications Medication Instructions Recorded Confirmed bupropion HCl 150 mg tablet,12 hr 150 mg PO QDAY ##0 10/04/11 sustained-release (Wellbutrin SR) escitalopram oxalate 10 mg tablet 10 mg PO QDAY ##0 10/04/11 03/01/22 (Lexapro) POLYETHYLENE GLYCOL 3350 1 cap PO Q DAY ##0 10/08/11 03/01/22 diazepam 5 mg tablet 5 mg PO ##0 10/08/11 levothyroxine 100 mcg tablet tab 03/01/22 (Synthroid) Previous Rx's Medication Instructions Recorded ondansetron 4 mg disintegrating 4 mg PO Q6H PRN nausea and 08/02/19 tablet vomiting #20 tabs Allergies Allergy/AdvReac Type Severity Reaction Status Date / Time Sulfa (Sulfonamide Allergy Intermediate HIVES Verified 03/01/22 15:23 Antibiotics) Review of Systems Review of Systems Narrative: HEENT: Denies headache, eye drainage, eye irritation, head trauma, sore throat, voice change Cardiovascular: Denies any chest pain, palpitations, shortness of breath, tachycardia Respiratory: positive for cough, and chest tightness GI/: Denies any abdominal pain, nausea, vomiting, diarrhea, bright red blood per rectum, melanotic stools, urinary frequency, urinary retention, dysuria, hematuria MSK: Denies any joint pain, muscle pains, swelling Skin: Denies any rashes, lesions, discoloration Neuro: Denies any headache, lightheadedness, dizziness, fainting, weakness Psych: Denies SI/HI Patient History Medical History Hypothyroid Social History (Reviewed 03/01/22 @ 18:31 by TU Sanchez Smoking Status: Former smoker Smoking Status: Former smoker alcohol intake frequency: 0-2 drinks per day Substance Use Type: does not use Exam Narrative Exam Narrative: General: Cooperative, comfortable, well-developed, not in acute distress HEENT: Normocephalic, atraumatic, PERRLA, normal sclera, eyelids normal, Neck: Active full range of motion, atraumatic Chest: Normal to inspection, negative crepitus, no overlying erythema ecchymosis Respiratory: Normal respiratory effort, not in acute respiratory distress, clear to auscultation bilaterally negative cough, wheeze, tachypnea, rhonchi, rales Cardiology: Regular rate rhythm negative gallop, murmur, rubs GI/: Normal to inspection, soft, nonrigid, no tenderness to palpation, exam deferred MSK: Full range of active range of motion of all 4 extremities, atraumatic Skin: No rashes lesions noted Neuro: Alert awake oriented x3, moves all 4 extremities spontaneously, cranial nerves intact, able to answer all questions appropriately follows commands appropriately Psych: Cooperative, negative suicidal or homicidal ideations Initial Vital Signs Initial Vital Signs: Vital Signs Pulse Rate 88 05/09/24 08:05 Blood Pressure 129/74 05/09/24 08:05 Pulse Oximetry 98 05/09/24 08:05 Course Orders Ordered: ED Orders 05/09/24 08:18 XR chest 1V Stat EKG-12 Lead Stat 05/09/24 08:30 Covid-19 + FLU A/B + RSV - PCR Stat 05/09/24 08:35 Strep Grp A by PCR Rapid Stat 05/09/24 08:45 Complete Blood Count AUTO DIFF Stat Comprehensive Metabolic Panel Stat Lipase Stat Troponin & CK Cardiac Panel Stat Sodium Chloride (Normal Saline 0.9%) 1,000 mls @ 150 mls/hr IV CONT TIGIST Last Admin: 05/09/24 08:29 Dose: 150 mls/hr Documented By: RB Vital Signs Vital signs: Vital Signs - 8 hr 05/09/24 08:05 05/09/24 08:05 05/09/24 08:09 Temperature 97.8 F Pulse Rate 88 87 Respiratory Rate 16 Blood Pressure 129/74 129/74 Pulse Oximetry 98 99 Oxygen Delivery Method Room Air 05/09/24 08:30 05/09/24 08:30 05/09/24 09:00 Temperature Pulse Rate 76 Respiratory Rate Blood Pressure 127/66 115/68 Pulse Oximetry 95 Oxygen Delivery Method 05/09/24 09:00 05/09/24 09:29 05/09/24 09:30 Temperature Pulse Rate 74 69 Respiratory Rate 21 34 H Blood Pressure 117/69 Pulse Oximetry 96 97 Oxygen Delivery Method MDM - URI/Sore Throat Medical Records Attestation: I reviewed the patient's medical records. Lab Data Attestation: I reviewed the patient's lab results. 05/09/24 08:45 05/09/24 08:45 Labs: Lab Results 05/09/24 05/09/24 05/09/24 Range/Units 08:30 08:35 08:45 WBC 3.4 L (4.5-11.0) X10^3/uL RBC 4.81 (4.0-5.2) X10^6/uL Hgb 15.1 (12.0-16.0) g/dL Hct 43.5 (36-46) % MCV 90.4 (80-100) fL MCH 31.3 (26-34) PG MCHC 34.7 (30-36) % RDW 13.2 (11.6-14.8) % Plt Count 233 (150-400) X10^3/uL Neut % (Auto) 58.4 (50-75) % Lymph % (Auto) 26.9 (25-40) % Forest % (Auto) 12.8 (3-14) % Eos % (Auto) 1.1 L (2-4) % Baso % (Auto) 0.8 (0-2) % Neut # (Auto) 2000 (0376-0269) /uL Lymph # (Auto) 900 L (8196-5743) /uL Forest # (Auto) 400 (0-900) /uL Eos # (Auto) 0 (0-450) /uL Baso # (Auto) 0 (0-100) /uL Sodium 139 (137-145) mmol/L Potassium 4.0 (3.4-5.1) mmol/L Chloride 101 (98-107) mmol/L Carbon Dioxide 25 (22-32) mmol/L BUN 10 (7-17) mg/dL Creatinine 0.76 (0.52-1.04) mg/dL Estimated GFR > 60 (>60) mL/min BUN/Creatinine Ratio 13.2 (6-22) Glucose 97 (70-100) mg/dL Calcium 9.0 (8.4-10.2) mg/dL Total Bilirubin 1.1 (0.2-1.3) mg/dL AST 27 (14-36) IU/L ALT 16 (<35) IU/L Alkaline Phosphatase 54 (38-126) U/L Total Creatine Kinase 28 L (30-135) U/L Troponin I < 0.012 (0.01-0.034) ng/mL Total Protein 7.7 (6.3-8.2) g/dL Albumin 4.6 (3.5-5.0) g/dL Globulin 3.1 (1.7-4.1) g/dL Albumin/Globulin Ratio 1.5 (1.0-2.8) Lipase 144 (23-300) U/L SARS-CoV-2 (PCR) Positive H (Negative) Influenza A (RT-PCR) Flu a negative (NEGATIVE) Influenza B (RT-PCR) Flu b negative (NEGATIVE) RSV (PCR) Negative (Negative) Group A Strep (PCR) Negative (Negative) Point of Care Testing Glucose POC 108 ECG Data Attestation: I personally reviewed and interpreted this ECG as follows: Interpretation: EKG interpreted by ED physician, sinus at 66 beats per minute, QTC [address] changes no STEMI MDM Narrative Medical decision making narrative: Patient is a 58-year-old female no significant past medical history presented for flu-like symptoms. Lab work was unremarkable, EKG nonischemic, chest x-ray without any cardiopulmonary abnormalities. Group a strep rapid negative. Patient COVID positive. Patient not requiring any supplemental oxygen Patient was given strict return precautions safe for discharge home with outpatient follow-up Discharge Plan Departure Patient Disposition: Home Clinical Impression: COVID-19 Activity Restrictions/Additional Instructions: Please read the discharge instructions sheet carefully and bring all papers to all doctor follow-up visits, as it may contain information that your doctor may want to see. Disease processes change and evolve, if your symptoms worsen or if you develop any new symptoms that are concerning to you please return for evaluation. Your evaluation today does not show any evidence of any life-threatening/serious illnesses requiring admission to the hospital or surgery. Please follow-up with your doctor for re-evaluation in approximately 1 day. Seek immediate medical attention for any worrisome symptoms. Prescriptions: No Action bupropion HCl [Wellbutrin SR] 150 MG tablet extended release 12 hr 150 mg PO QDAY Qty: 0 escitalopram oxalate [Lexapro] 10 MG tablet 10 mg PO QDAY Qty: 0 diazepam 5 MG tablet 5 mg PO Qty: 0 POLYETHYLENE GLYCOL 3350 1 cap PO Q DAY Qty: 0 ondansetron 4 mg tablet,disintegrating 4 mg PO Q6H PRN (Reason: nausea and vomiting) Qty: 20 0RF levothyroxine [Synthroid] 100 mcg tablet Patient Comments: TAKE 1 TABLET BY MOUTH EVERY DAY Referrals: Camila Alexander MD [Primary Care Provider] - Stand Alone Forms: Patient Portal/API
--- NOTE | 2024-05-09 08:26 | EKG_ITS ---
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
[2024-05-09] MEDS: SODIUM CHLORIDE 0.9% 1,000 ML 150 ML IV (08:29)
[2024-05-09 08:30] VITALS: BP 127/66; PULSE 76; O2SAT 95
[2024-05-09 08:55] LABS: Add Manual Diff / Slide Review NO; Basophils Absolute Auto 0 /uL (0-100); Basophils Percent Auto 0.8 % (0-2); Eosinophils Absolute Auto 0 /uL (0-450); Eosinophils Percent Auto 1.1 % (2-4); Hematocrit 43.5 % (36-46); Hemoglobin 15.1 g/dL (12.0-16.0); Lymphocytes Absolute Auto 900 /uL (1100-4500); Lymphocytes Percent Auto 26.9 % (25-40); Mean Corpuscular HGB Conc 34.7 % (30-36); Mean Corpuscular Hemoglobin 31.3 PG (26-34); Mean Corpuscular Volume 90.4 fL (80-100); Monocytes Absolute Auto 400 /uL (0-900); Monocytes Percent Auto 12.8 % (3-14); Neutrophils Absolute Auto 2000 /uL (1500-7000); Neutrophils Percent Auto 58.4 % (50-75); Platelet Count 233 X10^3/uL (150-400); Red Blood Cell Count 4.81 X10^6/uL (4.0-5.2); Red Cell Distribution Width 13.2 % (11.6-14.8); White Blood Cell Count 3.4 X10^3/uL (4.5-11.0)
[2024-05-09 08:56] LABS: Strep Grp A by PCR Rapid Negative (Negative)
[2024-05-09 09:00] VITALS: BP 115/68; PULSE 74; RESP 21; O2SAT 96
[2024-05-09 09:04] LABS: Alanine Aminotransferase 16 IU/L (<35); Albumin 4.6 g/dL (3.5-5.0); Albumin Globulin Ratio 1.5 (1.0-2.8); Alkaline Phosphatase 54 U/L (38-126); Aspartate Aminotransferase 27 IU/L (14-36); BUN Creatinine Ratio 13.2 (6-22); Bilirubin Total 1.1 mg/dL (0.2-1.3); Blood Urea Nitrogen 10 mg/dL (7-17); Carbon Dioxide 25 mmol/L (22-32); Chloride 101 mmol/L (98-107); Creatine Kinase 28 U/L (30-135); Estimated Glomerular Filt Rate > 60 mL/min (>60); Globulin 3.1 g/dL (1.7-4.1); Glucose 97 mg/dL (70-100); HEMOLYSIS < 15 (0-50); Lipase 144 U/L (23-300); Sodium 139 mmol/L (137-145); Total Protein 7.7 g/dL (6.3-8.2)
[2024-05-09 09:16] LABS: COVID-19 CEPHEID 4-PLEX PCR POSITIVE (Negative); Influenza A - CEPHEID Flu A NEGATIVE (NEGATIVE); Influenza B - CEPHEID Flu B NEGATIVE (NEGATIVE); Respiratory Syncytial Virus Negative (Negative)
[2024-05-09 09:17] LABS: Troponin I < 0.012 ng/mL (0.01-0.034)
[2024-05-09 09:29] VITALS: PULSE 69; RESP 34; O2SAT 97
[2024-05-09 09:30] VITALS: BP 117/69
== END 2024-05-09 09:42 | disposition home or self-care (01) ==
PROVIDERS: Emergency Provider Student in an Organized Health Care Education/Training Program; PCP Family Medicine
DX: U07.1 COVID-19 (principal)
CPT/HCPCS: 0241U; 36415; 71045; 80053; 82550; 82962; 83690; 84484; 85025; 87651; 93005; 96360; 99284